=== PATIENT | male | born 1995 | race Asian ===

== ENCOUNTER 2017-01-05 03:31 | Emergency (ER) | payer SELFPAY ==
[~2017-01-05] VITALS: Ht 167.6 cm; Wt 64.0 kg
[2017-01-05] MEDS ORDERED: ULTRACET1 TABLET PO (04:47)
[2017-01-05] MEDS ORDERED: COLACE100 MG PO (04:47)
[2017-01-05] MEDS ORDERED: BACTRIM,SEPT1 TABLET PO (04:47)
[2017-01-05 04:58] VITALS: BP 135/81
== END 2017-01-05 04:59 | disposition home or self-care (01) ==
LOC: EME 03:31 → EXP 03:31
DX: K62.89 Other specified diseases of anus and rectum (principal); F17.200 Nicotine dependence, unspecified, uncomplicated
CPT/HCPCS: 99281; 99284